=== PATIENT | female | born 1935 | race Caucasian/White ===

== ENCOUNTER → 2016-04-22 | Outpatient (CLI) | payer MEDICARE | LOC: RAD 11:20 | PROVIDERS: ATTEND Internal Medicine Medical Oncology | DX: C50.912 Malignant neoplasm of unspecified site of left female breast (principal); Z85.3 Personal history of malignant neoplasm of breast | CPT/HCPCS: 78815; A9552 ==

== ENCOUNTER 2016-08-16 12:20 | Observation (INO) | payer MEDICARE ==
--- NOTE | 2016-08-16 12:36 | ER Document Report ---
ED Medical Screen (RME) - General Chief Complaint: Shortness Of Breath Stated Complaint: SHORTNESS OF BREATH Time Seen by Provider: 08/16/16 12:28 Notes: 81-year-old female who presents today with some feeling of some "shortness of breath and "starting yesterday. Patient denies any real chest pain or pressure. She denies any leg swelling. She has had some nasal congestion without nausea, vomiting, fevers, or productive cough. Patient was sent here by the primary care physician for further evaluation. The daughter states that the patient has had a 40 pound weight loss over the last few months. TRAVEL OUTSIDE OF THE [place] IN LAST 30 DAYS: No - Related Data Allergies/Adverse Reactions: No Known Allergies Allergy (Verified 08/16/16 12:25) Past Medical History Renal/ Medical History: Denies: Hx Peritoneal Dialysis
--- NOTE | 2016-08-16 12:57 | ER Document Report ---
ED Respiratory Problem - General Chief Complaint: Shortness Of Breath Stated Complaint: SHORTNESS OF BREATH Time Seen by Provider: 08/16/16 12:28 Mode of Arrival: Ambulatory Information source: Patient, Relative - daughter Notes: 81 yo non smoker non drinker, female c/o shortness of breath and feeling very sluggish since yesterday. Daughter noticed the gasping for air this morning while standing at the counter. Leaned over because she was so tired. PCP: Dr. trimble. pmh: Afib, hyperlipidemia, depression, hypertension, low bone density. No hx of MA. Denies chest pain but has funny feeling retrosternal midline last night and this morning after eating, goes away when she relaxes or 30 minutes after eating. Stress test years ago, negative. TRAVEL OUTSIDE OF THE [place] IN LAST 30 DAYS: No - Related Data Allergies/Adverse Reactions: No Known Allergies Allergy (Verified 08/16/16 12:25) Home Medications: Current Home Medications Alendronate Sodium [Fosamax] 70 mg PO FR 08/16/16 [History] Atenolol [Tenormin 50 mg Tablet] 50 mg PO NOON 08/16/16 [History] Benazepril HCl [Lotensin 20 mg Tablet] 20 mg PO DAILY 08/16/16 [History] Calcium Carbonate/Vitamin D3 [Calcium 500 + Vit D Caplet] 1 tab PO DAILY [History] Fluoxetine HCl [Prozac] 10 mg PO DAILY 08/16/16 [History] Pravastatin Sodium [Pravachol] 40 mg PO QHS 08/16/16 [History] Warfarin Sodium [Coumadin 2 mg Tablet] 2 mg PO MOFR 08/16/16 [History] Warfarin Sodium [Coumadin 3 mg Tablet] 3 mg PO SUTUWETHSA 08/16/16 [History] Past Medical History - General Information source: Patient - Social History Smoking Status: Never Smoker Frequency of alcohol use: None Drug Abuse: None Lives with: Family Family History: Reviewed & Not Pertinent Patient has suicidal ideation: No Patient has homicidal ideation: No - Past Medical History Cardiac Medical History: Reports: Hx Atrial Fibrillation, Hx Hypertension Other: hyperlipedemia Renal/ Medical History: Denies: Hx Peritoneal Dialysis Surgical Hx: Negative Review of Systems - Review of Systems Constitutional: See HPI EENT: No symptoms reported Cardiovascular: No symptoms reported Respiratory: See HPI Gastrointestinal: No symptoms reported Genitourinary: No symptoms reported Female Genitourinary: No symptoms reported Musculoskeletal: No symptoms reported Skin: No symptoms reported Hematologic/Lymphatic: No symptoms reported Neurological/Psychological: See HPI Physical Exam - Vital signs Vitals: Temp Pulse Resp BP Pulse Ox 97.6 F 68 20 99/66 L 97 08/16/16 12:34 08/16/16 12:34 08/16/16 12:34 08/16/16 12:34 08/16/16 12:34 Interpretation: Normal - General General appearance: Appears well, Alert In distress: None - HEENT Head: Normocephalic, Atraumatic Eyes: Normal Conjunctiva: Normal Pupils: PERRL Tympanic membrane: Normal Nasal: Normal Mucous membranes: Dry Neck: Supple. No: Lymphadenopathy - Respiratory Respiratory status: No respiratory distress Chest status: Nontender Breath sounds: Normal Chest palpation: Normal - Cardiovascular Rhythm: Regular Heart sounds: Normal auscultation Murmur: No - Abdominal Inspection: Normal Distension: No distension Bowel sounds: Normal Tenderness: Nontender. No: Tender Organomegaly: No organomegaly - Back Back: Normal, Nontender. No: CVA tenderness - Extremities General upper extremity: Normal inspection, Nontender, Normal color, Normal ROM , Normal temperature General lower extremity: Normal inspection, Nontender, Normal color, Normal ROM , Normal temperature, Normal weight bearing. No: Robbin's sign - Neurological Neuro grossly intact: Yes Cognition: Normal Orientation: AAOx4 [place] Coma Scale Eye Opening: Spontaneous Misha Coma Scale Verbal: Oriented Misha Coma Scale Motor: Obeys Commands Misha Coma Scale Total: 15 Speech: Normal Motor strength normal: LUE, RUE, LLE, RLE Sensory: Normal - Psychological Associated symptoms: Normal affect, Normal mood - Skin Skin Temperature: Warm Skin Moisture: Dry Skin Color: Normal Skin irregularity: negative: Rash Course - Re-evaluation Re-evalutation: 08/16/16 15:15 Dr. Hamilton has suggested admission I called Dr. Dozier and he wanted me to order a CTA and admit telemetry observation. I will discuss this with the patient. - Vital Signs Vital signs: Temp Pulse Resp BP Pulse Ox 97.6 F 68 20 152/91 H 99 08/16/16 12:34 08/16/16 12:34 08/16/16 16:01 08/16/16 16:01 08/16/16 16:01 - Laboratory Result Diagrams: 08/16/16 12:45 08/16/16 12:45 Laboratory results interpreted by me: 08/16/16 08/16/16 08/16/16 12:45 12:45 12:45 Hgb 11.9 L RDW 14.5 H Seg Neutrophils % 81.2 H Lymphocytes % 10.9 L PT 17.0 H Potassium 5.6 H BUN 39 H Est GFR ( Amer) 54 L Est GFR (Non-Af Amer) 45 L Calcium 10.6 H Ur Leukocyte Esterase Urine Ascorbic Acid 08/16/16 14:15 Hgb RDW Seg Neutrophils % Lymphocytes % PT Potassium BUN Est GFR ( Amer) Est GFR (Non-Af Amer) Calcium Ur Leukocyte Esterase LARGE H Urine Ascorbic Acid 40 H Discharge - Discharge Clinical Impression: shortness of breath, weight loss, HX: breast cancer, Urine WBC increased Chest pain Qualifiers: Chest pain type: unspecified Qualified Code(s): R07.9 - Chest pain, unspecified Fatigue Qualifiers: Fatigue type: unspecified Qualified Code(s): R53.83 - Other fatigue Condition: Stable Disposition: ADMITTED OBSERVATION Admitting Provider: Hospitalist Unit Admitted: Telemetry
[2016-08-16 13:09] LABS: ABSOLUTE LYMPHOCYTES (AUTO) 0.7 10^3/uL (0.5-4.7); ABSOLUTE MONOCYTES (AUTO) 0.5 10^3/uL (0.1-1.4); ABSOLUTE NEUT (AUTO) 5.3 10^3/uL (1.7-8.2); BASOPHILS % (AUTO) 0.2 % (0-2); EOSINOPHILS % (AUTO) 0.5 % (0-6); HEMATOCRIT 36.6 % (36.0-47.0); HEMOGLOBIN 11.9 g/dL (12.0-15.5); HGB HCT DIFFERENCE -0.9; LYMPHOCYTES % (AUTO) 10.9 % (13-45); MEAN CORPUSCULAR HEMOGLOBIN 30.2 pg (27.0-33.4); MEAN CORPUSCULAR HGB CONC 32.5 g/dL (32.0-36.0); MEAN CORPUSCULAR VOLUME 93 fl (80-97); MONOCYTES % (AUTO) 7.2 % (3-13); RED BLOOD COUNT 3.94 10^6/uL (3.72-5.28); RED CELL DISTRIBUTION WIDTH 14.5 % (11.5-14.0); SEGMENTED NEUTROPHILS % (AUTO) 81.2 % (42-78); WHITE BLOOD COUNT 6.5 10^3/uL (4.0-10.5)
[2016-08-16 13:19] LABS: ANION GAP 10 (5-19); BLOOD UREA NITROGEN 39 mg/dL (7-20); CALCIUM 10.6 mg/dL (8.4-10.2); CARBON DIOXIDE 25 mmol/L (22-30); CHLORIDE 107 mmol/L (98-107); CREATININE RESULT 1.17 mg/dL (0.52-1.25); GLUCOSE 93 mg/dL (75-110); POTASSIUM 5.6 mmol/L (3.6-5.0); SODIUM 141.5 mmol/L (137-145)
[2016-08-16] MEDS ORDERED: NORMAL SALINE 1000 ML 1,000 ML IV ONE (13:19)
[2016-08-16] MEDS ORDERED: NORMAL SALINE 1000 ML 500 ML IV ONE (13:20)
[2016-08-16 14:17] LABS: ALANINE AMINOTRANSFERASE 12 U/L (9-52); ALBUMIN 4.3 g/dL (3.5-5.0); ALKALINE PHOSPHATASE 48 U/L (38-126); ASPARTATE AMINO TRANSFERASE 23 U/L (14-36); BILIRUBIN,DIRECT 0.4 mg/dL (0.0-0.4); BILIRUBIN,TOTAL 0.9 mg/dL (0.2-1.3); TOTAL PROTEIN 7.2 g/dL (6.3-8.2)
[2016-08-16 14:39] LABS: APPEARANCE,URINE CLOUDY; BILIRUBIN,URINE NEGATIVE (NEGATIVE); GLUCOSE, URINE NEGATIVE (NEGATIVE); KETONES,URINE NEGATIVE (NEGATIVE); LEUKOCYTE ESTERASE,URINE LARGE (NEGATIVE); NITRITE,URINE NEGATIVE (NEGATIVE); PROTEIN,URINE NEGATIVE (NEGATIVE); URINE SPECIFIC GRAVITY 1.011; UROBILINOGEN,URINE NEGATIVE mg/dL (<2.0)
[2016-08-16] MEDS ORDERED: ONDANSETRON HCL INJ/PF 4 MG/2 ML SDV IV PRN (16:38)
[2016-08-16] MEDS ORDERED: 1/2 NORMAL SALINE 1,000 ML IV PRN (16:38)
[2016-08-16] MEDS ORDERED: ACETAMINOPHEN 325 MG TABLET PO PRN (16:38)
--- NOTE | 2016-08-16 17:19 | PDOC H&P ---
History of Present Illness Admission Date/PCP: 08/16/16 15:29 CHAVO NAYLOR DO Patient complains of: Chest pain History of Present Illness: ARELIS LUNA is a 81 year old female with past medical history of atrial fibrillation, hypertension, depression/anxiety that is accompanied to the emergency department by family for 2 episodes over the past 2 days of chest pain with associated shortness of breath and diaphoresis. These episodes were not associated with exertion. There is nothing in particular that would aggravate or relieve this discomfort. Patient incidentally states she has been under a lot of "stress" lately helping care for her has dementia. She resides with her son and [id number] also help care for both of her and her . Patient was recently started on fluoxetine 10 mg daily 2 weeks ago for anxiety issues. Patient has also had approximate 40 pounds of weight loss over the past 4 months. This coincides with the same timeframe in which she moved in with her son and [id number]. Her dietary habits have changed significantly since moving in with family members. Medications listed below have not been verified at the time of this documentation. Past Medical History Cardiac Medical History: Reports: Atrial Fibrillation, Hypertension Pulmonary Medical History: Reports: Bronchitis - breast Malignancy Medical History: Reports: Breast Cancer - Remote history followed by Dr. Nina Psychiatric Medical History: Reports: Depression Past Surgical History Past Surgical History: Reports: Mastectomy - L side Social History Information Source: Patient, Relative Lives with: Family Smoking Status: Former Smoker Frequency of Alcohol Use: None Hx Recreational Drug Use: No Hx Prescription Drug Abuse: No - Advance Directive Resuscitation Status: Full Code Family History Family History: Hypertension Parental Family History Reviewed: Yes Children Family History Reviewed: Yes Sibling(s) Family History Reviewed.: Yes Medication/Allergy Allergies/Adverse Reactions: No Known Allergies Allergy (Verified 08/16/16 12:25) Review of Systems Constitutional: PRESENT: fatigue, weakness - Generalized. ABSENT: chills, fever (s), headache(s), weight gain, weight loss Eyes: ABSENT: visual disturbances Ears: ABSENT: hearing changes Cardiovascular: ABSENT: chest pain, dyspnea on exertion, edema, orthropnea, palpitations Respiratory: ABSENT: cough, hemoptysis Gastrointestinal: ABSENT: abdominal pain, constipation, diarrhea, hematemesis, hematochezia, nausea, vomiting Genitourinary: ABSENT: dysuria, hematuria Musculoskeletal: ABSENT: joint swelling Integumentary: ABSENT: rash, wounds Neurological: ABSENT: abnormal gait, abnormal speech, confusion, dizziness, focal weakness, syncope Psychiatric: ABSENT: anxiety, depression, homidical ideation, suicidal ideation Endocrine: ABSENT: cold intolerance, heat intolerance, polydipsia, polyuria Hematologic/Lymphatic: ABSENT: easy bleeding, easy bruising Physical Exam Vital Signs: Temp Pulse Resp BP Pulse Ox 97.6 F 68 20 99/66 L 97 08/16/16 12:34 08/16/16 12:34 08/16/16 12:34 08/16/16 12:34 08/16/16 12:34 PHYSICAL EXAM: GENERAL: Appears well, no acute distress HEENT: Normocephalic, no scleral icterus, conjunctiva clear, EOEM intact, PERRLA , moist mucous membranes NECK: trachea midline, no thyromegally RESPIRATORY: Clear to auscultation, no wheezes/rhonchi CARDIAC: Regular rate and rhythm, no murmur/keli/rub ABDOMEN: Soft, no distension, no tenderness, no guarding, normal bowel sounds, negative Shoemaker sign RECTAL: deferred : deferred EXTREMITIES: No edema, cyanosis, clubbing MUSCULOSKELETAL: No joint swelling or deformity VASCULAR: normal peripheral pulses NEUROLOGIC: Alert, oriented to person/place/time, normal speech, cranial nerves grossly intact, 5/5 strength in all extremities, tactile sensation intact in all extremities SKIN: No rash, no wounds, no worrisome skin lesions PSYCHIATRIC: Normal mood, normal affect Results Laboratory Results: Labs- All tests 24 hr 08/16/16 08/16/16 08/16/16 12:45 12:45 12:45 WBC 6.5 RBC 3.94 Hgb 11.9 L Hct 36.6 MCV 93 MCH 30.2 MCHC 32.5 RDW 14.5 H Plt Count 238 Seg Neutrophils % 81.2 H Lymphocytes % 10.9 L Monocytes % 7.2 Eosinophils % 0.5 Basophils % 0.2 Absolute Neutrophils 5.3 Absolute Lymphocytes 0.7 Absolute Monocytes 0.5 Absolute Eosinophils 0.0 Absolute Basophils 0.0 PT INR Sodium 141.5 Potassium 5.6 H Chloride 107 Carbon Dioxide 25 Anion Gap 10 BUN 39 H Creatinine 1.17 Est GFR ( Amer) 54 L Est GFR (Non-Af Amer) 45 L Glucose 93 Calcium 10.6 H Total Bilirubin Direct Bilirubin Indirect Bilirubin Neonat Total Bilirubin AST ALT Alkaline Phosphatase Troponin I < 0.012 Total Protein Albumin Urine Color Urine Appearance Urine pH Ur Specific Lynn Urine Protein Urine Glucose (UA) Urine Ketones Urine Blood Urine Nitrite Urine Bilirubin Urine Urobilinogen Ur Leukocyte Esterase Urine WBC (Auto) Urine RBC (Auto) Urine Bacteria (Auto) Urine WBC Clumps Squamous Epi Cells Auto Urine Mucus (Auto) Urine Ascorbic Acid 08/16/16 08/16/16 08/16/16 12:45 12:45 14:15 WBC RBC Hgb Hct MCV MCH MCHC RDW Plt Count Seg Neutrophils % Lymphocytes % Monocytes % Eosinophils % Basophils % Absolute Neutrophils Absolute Lymphocytes Absolute Monocytes Absolute Eosinophils Absolute Basophils PT 17.0 H INR 1.33 Sodium Potassium Chloride Carbon Dioxide Anion Gap BUN Creatinine Est GFR ( Amer) Est GFR (Non-Af Amer) Glucose Calcium Total Bilirubin 0.9 Direct Bilirubin 0.4 Indirect Bilirubin Not Reportable Neonat Total Bilirubin Not Reportable AST 23 ALT 12 Alkaline Phosphatase 48 Troponin I Total Protein 7.2 Albumin 4.3 Urine Color YELLOW Urine Appearance CLOUDY Urine pH 7.0 Ur Specific Lynn 1.011 Urine Protein NEGATIVE Urine Glucose (UA) NEGATIVE Urine Ketones NEGATIVE Urine Blood NEGATIVE Urine Nitrite NEGATIVE Urine Bilirubin NEGATIVE Urine Urobilinogen NEGATIVE Ur Leukocyte Esterase LARGE H Urine WBC (Auto) 176 Urine RBC (Auto) 5 Urine Bacteria (Auto) TRACE Urine WBC Clumps MOD Squamous Epi Cells Auto 2 Urine Mucus (Auto) RARE Urine Ascorbic Acid 40 H Impressions: Chest X-Ray 08/16/16 12:35 IMPRESSION: No acute findings Chest/Abdomen CTA 08/16/16 15:14 IMPRESSION: No CT angio evidence of acute pulmonary emboli or thoracic aortic dissection No acute infiltrates or pleural effusions Calcified stones in the gallbladder 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 Serial cardiac enzymes. Consult cardiology for recommendations given patient's constitutional symptoms of dyspnea and diaphoresis. CTA of chest negative for pulmonary embolism/dissection. Gallstones noted. 3 cm splenic artery aneurysm. (2) Choledocholithiasis Is this a current diagnosis for this admission?: YesPlan: This could be considered a source of patient's symptoms if cardiac workup is negative. (3) Urinary tract infection Is this a current diagnosis for this admission?: YesPlan: This may be accounting for patient's fatigue, polyuria. Doxycycline 100 mg twice daily. (4) Hyperkalemia Is this a current diagnosis for this admission?: YesPlan: Hold outpatient PAN inhibitor. Gentle IV fluids. Repeat potassium level in the morning. (5) Weight loss Is this a current diagnosis for this admission?: YesPlan: Possibly secondary to recent social changes in that she moved in with her son and [id number] in her dietary habits have changed. I would like to check thyroid function studies and cortisol level given other constitutional symptoms of fatigue. (6) Atrial fibrillation Is this a current diagnosis for this admission?: YesPlan: Increase Coumadin to 3 mg daily secondary to subtherapeutic INR. Patient normally takes atenolol as well and we will resume this once we verify the dose. (7) Hypertension Is this a current diagnosis for this admission?: YesPlan: Verify home medications. Blood pressures running on the low side I may hold these for now until blood pressure improves. (8) Anxiety Is this a current diagnosis for this admission?: YesPlan: Verify home dose of fluoxetine and resume. Check thyroid function studies to exclude hyperthyroid state given recent weight loss. (9) HX: breast cancer Is this a current diagnosis for this admission?: YesPlan: Patient has remote history of breast cancer. She is followed by Dr. Nina as an outpatient. - Time Time Spent: Greater than 70 Minutes Anticipated discharge: Home Within: within 48 hours
[2016-08-16 18:58] LABS: TROPONIN I < 0.012 ng/mL
[2016-08-16 19:41] LABS: FREE T3 3.08 pg/mL (2.77-5.27)
[2016-08-16 19:55] LABS: THYROID STIMULATING HORMONE 3.42 uIU/mL (0.47-4.68)
[2016-08-16] MEDS ORDERED: AMINOPHYLLINE INJ/PF 250 MG/10 ML SDV IV ONE (21:53)
[2016-08-16] MEDS ORDERED: REGADENOSON INJ 0.4 MG/5 ML DISP.SYRIN IV ONE (21:53)
--- NOTE | 2016-08-16 22:12 | EKG REPORT ---
SEVERITY:- ABNORMAL ECG - ATRIAL FIBRILLATION, V-RATE 52-84 : Confirmed by: Brittany Barrera MD 16-Aug-2016 22:12:37
[2016-08-16] MEDS: WARFARIN SODIUM 3 MG TABLET PO SCH (22:34)
[2016-08-16] MEDS: DOXYCYCLINE HYCLATE 100 MG TABLET PO SCH (22:34)
[2016-08-16 23:33] LABS: CREATINE KINASE MB 0.95 ng/mL (<4.55)
[2016-08-16 23:37] LABS: TROPONIN I < 0.012 ng/mL
[2016-08-17] MEDS: ENOXAPARIN SODIUM INJ 30 MG/0.3 ML DISP.SYRIN SUBCUT SCH (08:00)
[2016-08-17] MEDS: DOXYCYCLINE HYCLATE 100 MG TABLET PO SCH ×2 (10:00→22:09)
[2016-08-17] MEDS ORDERED: HYDRALAZINE HCL INJ/PF 20 MG/1 ML SDV IV PRN (18:52)
[2016-08-17] MEDS: WARFARIN SODIUM 3 MG TABLET PO SCH (22:09)
--- NOTE | 2016-08-17 22:49 | PDOC CONSULTATION ---
Consultation Consult Date: 08/16/16 Attending physician:: TERI PULLIAM MD Consult reason:: Chest pain History of Present Illness Admission Date/PCP: 08/16/16 16:38 CHAVO NAYLOR DO Patient complains of: Chest pain History of Present Illness: ARELIS LUNA is a 81 year old female with past medical history of atrial fibrillation, hypertension, depression/anxiety that is accompanied to the emergency department by family for 2 episodes over the past 2 days of chest pain with associated shortness of breath and diaphoresis. These episodes were not associated with exertion. There is nothing in particular that would aggravate or relieve this discomfort. There is no significant radiation. There is no associated nausea vomiting or diaphoresis. When I saw the patient, she was noted to be chest pain-free. Severity of symptoms was moderate as per patient. Patient incidentally states she has been under a lot of "stress" lately helping care for her has dementia. She resides with her son and [id number] also help care for both of her and her . Patient was recently started on fluoxetine 10 mg daily 2 weeks ago for anxiety issues. Patient has also had approximate 40 pounds of weight loss over the past 4 months. This coincides with the same timeframe in which she moved in with her son and [id number]. Her dietary habits have changed significantly since moving in with family members. Above history was confirmed, supplemented. I agree with above history which was also supplemented. I talked with patient's daughter in law in the room. Past Medical History Cardiac Medical History: Reports: Atrial Fibrillation, Hypertension Pulmonary Medical History: Reports: Bronchitis - breast Malignancy Medical History: Reports: Breast Cancer - Remote history followed by Dr. Nina Psychiatric Medical History: Reports: Depression Past Surgical History Past Surgical History: Reports: Mastectomy - L side Social History Information Source: Patient Lives with: Family Smoking Status: Never Smoker Frequency of Alcohol Use: None Hx Recreational Drug Use: No Drugs: None Hx Prescription Drug Abuse: No - Advance Directive Resuscitation Status: Full Code Family History Family History: Reviewed & Not Pertinent Parental Family History Reviewed: Yes Children Family History Reviewed: Yes Sibling(s) Family History Reviewed.: Yes Medication/Allergy Home Medications: Alendronate Sodium [Fosamax] 70 mg PO FR 08/16/16 Atenolol [Tenormin 50 mg Tablet] 50 mg PO NOON 08/16/16 Calcium Carbonate/Vitamin D3 [Calcium 500 + Vit D Caplet] 1 tab PO DAILY Fluoxetine HCl [Prozac] 10 mg PO DAILY 08/16/16 Pravastatin Sodium [Pravachol] 40 mg PO QHS 08/16/16 Cefpodoxime Proxetil [Vantin 100 mg Tablet] 1 tab PO Q12 #20 tab 08/18/16 Warfarin Sodium [Coumadin 3 mg Tablet] 3 mg PO QHS tablet 08/18/16 Allergies/Adverse Reactions: No Known Allergies Allergy (Verified 08/16/16 12:25) Review of Systems Review of Systems: Please see history of present illness and past medical history as wall. Constitutional: No fever or chills reported. Patient has noted fatigue, tiredness and some weight loss Head : No recent chronic headaches, recent head injury. Eyes: No recent eye pain, diplopia, redness, discharge, acute visual changes. Ears: No recent chronic ear pain, acute hearing loss, ear discharge. Oral cavity: No recent ulcerations, bleeding, oral cavity discomfort. Neck: No recent acute neck pain reported. Hematologic: No recent easy bruising or bleeding or hematologic malignancy reported. Lymphatic: No recent lymphatic malignancy, chronic lymphadenopathy reported yet Cardiovascular system review: See history of present illness. Respiratory system review: No recent chronic cough, hemoptysis, blood clots in the lungs reported. Mild Shortness of breath on exertion Gastrointestinal system review: Negative for any recent acute or chronic abdominal pain, hematemesis, melena, recent change in bowel habits. Genitourinary system review: No recent acute or chronic hematuria, flank pain, UTI etc. reported. Skin system review: Negative for any recent abnormal bruising, no rash, no pruritus reported. Neurologic: No prior history of strokes, mini strokes, seizure disorder. Psychologic: No history of major psychosis or major depression reported. Musculoskeletal: Minor aches and pains reported. No acute joint swelling reported. Endocrine: No recent polyuria, polydipsia, recent heat or cold intolerance. Physical Exam Vital Signs: Temp Pulse Resp BP Pulse Ox 97.5 F 68 17 158/86 H 97 08/16/16 17:39 08/16/16 17:39 08/16/16 17:39 08/16/16 17:39 08/16/16 17:39 Exam: GENERAL: well-nourished and in no acute distress. Alert and oriented x3 HEAD: Atraumatic, normocephalic. EYES: Pupils equal round and reactive to light, extraocular movements intact, sclera anicteric, conjunctiva are normal. ENT: TMs normal, nares patent, oropharynx clear without exudates. Moist mucous membranes. No oral ulcerations or bleeding gums noted NECK: supple without lymphadenopathy. Trachea is central. No cervical or axillary lymphadenopathy noted. Carotids are 2+, JVD WNL LUNGS: Respiration seems nonlabored, no significant accessory muscle action noted. Breath sounds clear to auscultation bilaterally and equal noted. No wheezes rales or rhonchi noted. No significant dullness noted on percussion. CHEST: Palpation of the chest wall shows no significant chest wall tenderness. No other significant abnormalities noted. Left mastectomy noted. HEART: [place] DRY PLASTERER, No PSH, 1/6 BREANA aortic area, 1/6 [place] systolic murmur mitral area, no rubs, no gallops. ABDOMEN: Soft, no significant tenderness appreciated, normoactive bowel sounds. No guarding, no rebound. No rigidity noted . No masses appreciated. EXTREMITIES: Pedal pulses are 1-2+, no calf tenderness noted. No clubbing or cyanosis.trace to 1+ pedal edema noted NEUROLOGICAL: Focused neurological exam showed no significant neurologic deficit. Normal speech, no focal weakness appreciated. PSYCH: Normal mood, normal affect. Judgment and insight within normal limits. SKIN: No significant ecchymosis, rash, ulcerations or signs of pruritus noted. MUSCULOSKELETAL EXAM: No significant joint swelling noted. Results Laboratory Results: 08/16/16 08/16/16 18:30 18:30 Vitamin B12 230.0 L TSH 3.42 Free T4 0.91 Free T3 pg/mL 3.08 08/16/16 08/16/16 17:14 18:30 Creatine Kinase 43 CK-MB (CK-2) 0.90 Troponin I < 0.012 EKG Comments: Atrial fibrillation, no acute ST-T wave changes noted. 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 Assessment & Plan - Diagnosis (1) Chest pain Qualifiers: Chest pain type: unspecified Qualified Code(s): R07.9 - Chest pain, unspecified Is this a current diagnosis for this admission?: Yes (2) Dyspnea Qualifiers: Dyspnea type: dyspnea on exertion Qualified Code(s): R06.09 - Other forms of dyspnea Is this a current diagnosis for this admission?: Yes (3) Atrial fibrillation Qualifiers: Atrial fibrillation type: chronic Qualified Code(s): I48.2 - Chronic atrial fibrillation Is this a current diagnosis for this admission?: Yes (4) Hypertension Qualifiers: Hypertension type: essential hypertension Qualified Code(s): I10 - Essential (primary) hypertension Is this a current diagnosis for this admission?: Yes - Notes Notes: Chest pain: There is at least intermediate probability that the patient's chest discomfort could be from underlying CAD. To be evaluated further with the nuclear stress test. Nuclear stress test procedure was explained to the patient in detail. Risks benefits were discussed and informed consent was obtained. Alternatives were discussed. Patient informed that based on risk factors, physical exam, lab data findings and symptoms there is at least intermediate probability of underlying CAD. Nuclear stress test procedure was therefore scheduled. Dyspnea: Possibly related to systolic/diastolic dysfunction/valvular heart disease. A 2D echocardiogram would be obtained to evaluate this further. This was ordered. Hypertension: Under satisfactory control. Atrial fibrillation: Chronic. Continue chronic anticoagulation if there are no contraindications. Based on Brian VASC score, this was recommended - Time Time Spent: 30 to 50 Minutes - CODE STATUS was discussed, patient remains full code. Surrogate decision-maker patient's . Multiple medical problems were addressed. More than 50% of the time spent coordinating care, discussing management plans with involved caregivers. Management plans discussed with involved personnels. Medical decision making was of moderate to high complexity , patient's has multiple severe comorbidities. Medications reviewed and adjusted accordingly: Yes
--- NOTE | 2016-08-17 22:55 | PDOC PROGRESS REPORT ---
Subjective Progress Note for:: 08/17/16 Subjective:: Patient seems to be doing better with gradual improvement. Pt is denying any chest arm or neck discomfort. Patient denying any PND, orthopnea. Patient denied any sustained palpitations, dizziness, syncope, near syncope. Patient denying any fever chills. Patient denying any other significant discomfort. Patient is maintaining chronic atrial fibrillation with controlled heart rate response. CT results reviewed show splenic artery aneurysm. 2D echo results reviewed showed low normal LVEF Review of systems: Rest review of systems negative. Medications: Medications have been reviewed. Physical Exam Vital Signs: Temp Pulse Resp BP Pulse Ox 97.8 F 86 17 137/64 H 98 08/17/16 19:38 08/17/16 19:38 08/17/16 19:38 08/17/16 19:38 08/17/16 19:38 Intake & Output 08/16/16 08/17/16 08/18/16 06:59 06:59 06:59 Intake Total 240 Output Total 650 Balance -410 Weight 53.5 kg Results Laboratory Results: 08/16/16 08/16/16 08/16/16 17:14 18:30 23:00 Creatine Kinase 43 40 CK-MB (CK-2) 0.90 Troponin I < 0.012 08/16/16 23:00 Creatine Kinase CK-MB (CK-2) 0.95 Troponin I < 0.012 Impressions: Chest X-Ray 08/16/16 12:35 IMPRESSION: No acute findings Chest/Abdomen CTA 08/16/16 15:14 IMPRESSION: No CT angio evidence of acute pulmonary emboli or thoracic aortic dissection No acute infiltrates or pleural effusions Calcified stones in the gallbladder Unruptured enhancing 3 cm splenic artery aneurysm Assessment & Plan - Diagnosis (1) Dyspnea Qualifiers: Dyspnea type: dyspnea on exertion Qualified Code(s): R06.09 - Other forms of dyspnea Is this a current diagnosis for this admission?: Yes (2) Atrial fibrillation Qualifiers: Atrial fibrillation type: chronic Qualified Code(s): I48.2 - Chronic atrial fibrillation Is this a current diagnosis for this admission?: Yes (3) Chest pain Qualifiers: Chest pain type: unspecified Qualified Code(s): R07.9 - Chest pain, unspecified Is this a current diagnosis for this admission?: Yes (4) Hypertension Qualifiers: Hypertension type: essential hypertension Qualified Code(s): I10 - Essential (primary) hypertension Is this a current diagnosis for this admission?: Yes (5) Splenic artery aneurysm Is this a current diagnosis for this admission?: Yes - Notes Notes: Chest pain: There is at least intermediate probability that the patient's chest discomfort could be from underlying CAD. To be evaluated further with the nuclear stress test. Dyspnea: Possibly related to systolic/diastolic dysfunction/valvular heart disease. A 2D echocardiogram would be obtained to evaluate this further. Hypertension: Under satisfactory control. Atrial fibrillation: Chronic. Continue chronic anticoagulation if there are no contraindications. - Time Time with patient: Greater than 35 minutes Medications reviewed and adjusted accordingly: Yes
[2016-08-18 06:26] LABS: HEMATOCRIT 34.5 % (36.0-47.0); HEMOGLOBIN 11.4 g/dL (12.0-15.5); HGB HCT DIFFERENCE -0.3; MEAN CORPUSCULAR HEMOGLOBIN 30.4 pg (27.0-33.4); MEAN CORPUSCULAR HGB CONC 32.9 g/dL (32.0-36.0); MEAN CORPUSCULAR VOLUME 92 fl (80-97); RED BLOOD COUNT 3.74 10^6/uL (3.72-5.28); RED CELL DISTRIBUTION WIDTH 14.6 % (11.5-14.0); WHITE BLOOD COUNT 5.4 10^3/uL (4.0-10.5)
[2016-08-18 06:29] LABS: PROTHROMBIN TIME 16.8 SEC (11.4-15.4)
[2016-08-18 06:40] LABS: ANION GAP 10 (5-19); BLOOD UREA NITROGEN 24 mg/dL (7-20); CALCIUM 10.2 mg/dL (8.4-10.2); CARBON DIOXIDE 22 mmol/L (22-30); CHLORIDE 110 mmol/L (98-107); CREATININE RESULT 0.89 mg/dL (0.52-1.25); GLUCOSE 82 mg/dL (75-110); POTASSIUM 4.6 mmol/L (3.6-5.0); SODIUM 142.3 mmol/L (137-145)
[2016-08-18 07:57] LABS: HEMATOCRIT 33.9 % (36.0-47.0); HEMOGLOBIN 11.3 g/dL (12.0-15.5); MEAN CORPUSCULAR HEMOGLOBIN 30.1 pg (27.0-33.4); MEAN CORPUSCULAR HGB CONC 33.3 g/dL (32.0-36.0); MEAN CORPUSCULAR VOLUME 90 fl (80-97); RED BLOOD COUNT 3.75 10^6/uL (3.72-5.28); RED CELL DISTRIBUTION WIDTH 14.5 % (11.5-14.0); WHITE BLOOD COUNT 4.8 10^3/uL (4.0-10.5)
--- NOTE | 2016-08-18 08:35 | PROGRESS NOTE E ---
Progress Note NAME: ARELIS LUNA : 1935 AGE: 81Y DATE: 08/17/2016 ROOM: 428 TIME SPENT MANAGING PATIENT: Twenty-five minutes. SUBJECTIVE: Patient has no further episodes of chest pain or shortness of breath. She denies fevers, chills, headache, focal weakness, numbness, chest pain or abdominal pain, nausea or vomiting. OBJECTIVE: VITAL SIGNS: Temperature 97.5, blood pressure 152/78, pulse 66, respirations 17, O2 saturation is 97% on room air. GENERAL: She is alert, sitting at the edge of the bed eating breakfast. In no acute distress. HEENT: Sclerae nonicteric. Oropharynx shows moist mucous membranes. NECK: Has no JVD; midline trachea. RESPIRATORY: Clear to auscultation. No wheeze or rhonchi. CARDIAC: Regular rate and rhythm with no murmurs, gallops, or rubs. ABDOMEN: Soft, nontender. EXTREMITIES: No edema, cyanosis, clubbing. LABORATORY DATA: White blood count 4.8, hemoglobin 11.3, platelets 198. Cortisol level is normal at 10.9. Cardiac enzymes have been negative. INR of 1.32, potassium 5.4. ASSESSMENT AND PLAN: 1. CHEST PAIN. PATIENT IS RULED OUT FOR ACUTE WI. Cardiology has been consulted. Will order echocardiogram and stress test in the morning. Patient also noted to have cholelithiasis. Of course, symptomatic cholelithiasis could reproduce these type symptoms if cardiac workup is negative. 2. CHOLELITHIASIS. Consider outpatient surgical recommendations. 3. URINARY TRACT INFECTION. 4. WEIGHT LOSS. 5. HYPERKALEMIA. PAN inhibitor was discontinued on admission. 6. ATRIAL FIBRILLATION. Patient's Coumadin was increased to 3 mg daily secondary to subtherapeutic INR. She remains on Lovenox until her INR is therapeutic. 7. HYPERTENSION. IV hydralazine p.r.n. 8. REMOTE HISTORY OF BREAST CANCER. Followed by Dr. Nina. DICTATING PHYSICIAN: TERI PULLIAM M.D. [id number] PHY#: [id number] ID: [id number] JOB#: [id number] ACCT: [id number] cc: >
[2016-08-18] MEDS: ENOXAPARIN SODIUM INJ 30 MG/0.3 ML DISP.SYRIN SUBCUT SCH (08:37)
[2016-08-18] MEDS: DOXYCYCLINE HYCLATE 100 MG TABLET PO SCH (09:13)
[2016-08-18 11:56] LABS: PROTHROMBIN TIME 16.9 SEC (11.4-15.4)
--- NOTE | 2016-08-18 13:39 | Physician Advisory Note ---
Physician Advisor ProgressNote .: Pursuant to the plan for [facility], I have reviewed the medical record for this patient. Physician Advisor Statement: Possible documentation opportunities if attending agrees: 1. ? - "hyperkalemia suspected due to PAN-I, appropriately prescribed & taken correctly" 2. "persistent Afib" [or paroxysmal? ... ] 3. ? - "Nutritional B12 deficiency anemia" As always, if concerned about any unstable VS or abnormal labs, please comment on them & note what doing about them, & please document each day the potential clinical problems you are concerned could occur if pt not kept in hospital for tx at this time. Thanks for your help with documentation accuracy/specificity improvement! Sola Rojas MD [facility] Physician Advisor, Fellow of Hospital Medicine
--- NOTE | 2016-08-18 16:59 | DRAGON STRESS TEST REPORT ---
INTRAVENOUS LEXISCAN CARDIOLITE STRESS TEST USING SINGLE PHOTON EMMISION COMPUTERIZED TOMOGRAPHIC. DATE OF PROCEDURE: August 18, 2016 INDICATION : Chest pain CARDIAC RISK FACTORS: Hypertension, atrial fibrillation RESTING EKG: Atrial fibrillation with controlled ventricular response. Possible LVH. STRESS EKG: No significant changes noted with LexiScan bolus REASON FOR TERMINATION: Protocol. PROCEDURE REPORT: Baseline heart rate 80 beats per minute with blood pressure of 135/76. Patient had no significant complaints. Heart rate at 2 minutes post bolus 98 with a blood pressure of 126/72. 3 minutes post bolus heart rate 96 with blood pressure of 130/80. No significant EKG changes were noted. Patient had no significant complaints during the procedure or postprocedure. Patient injected with Aminophyllin 75 mg at 3 minutes or later after Lexiscan bolus. CONCLUSIONS: Normal EKG and hemodynamic response to IV LexiScan. NUCLEAR DATA: At rest the patient was given 9.34 millicuries of technetium 99 sestamibi injected intravenously. As per protocol rest gated SPECT images were obtained. Subsequently the patient was given intravenous LexiScan at a dose of 0.4 mg in 5 mL intravenously, followed by flush with normal saline. Subsequently the stress dose of 31.5 millicuries of technetium 99 sestamibi was injected intravenously. As per protocol stress gated images were obtained. NUCLEAR INTERPRETATION: Both raw and processed data were used for interpretation. Visual, qualitative, computer-generated quantitative data was used. There was good myocardial uptake of technetium compound. Motion artifact and soft tissue attenuations were noted. Increased visceral uptake was noted. No definitive areas of transient perfusion defect noted. No definitive areas of fixed perfusion defect or scars noted. EKG gated imaging showed LV EF at 59 %, rest and stress gated EF similar visually. T. I D. ratio was 1.02. Lung heart ratio noted to be within normal limits 0.28. No significant extracardiac and abnormal radiotracer activities were noted. RV free wall uptake was noted to be WNL IMPRESSION: Also refer to comments under nuclear interpretation. Also test results needs to be interpreted in the context of pretest probability. 1. There is no definitive scintigraphic evidence of LexiScan induced myocardial ischemia. 2. There is no definitive scintigraphic evidence of myocardial infarction/scar. 3. EKG gated imaging shows left ejection fraction of approximately 59 %. 4. Clinical correlation requested as occasionally single vessel disease or balanced ischemia could be missed. In approximately 10% of the cases Lexiscan may not cause adequate vasodilatory stress. RECOMMENDATIONS: Aggressive risk factor modification, medical therapy. Clinical correlation with echocardiogram derived ejection fraction. Inability to exercise by itself can lead to increased cardiovascular event risks. Consider cardiology consultation and or follow-up if clinically indicated. I AM AVAILABLE FOR CARDIOLOGY CONSULTATION AND FOLLOWUP IF REQUESTED BY PMD Clayton Cornelius M.D., DIONI Telephonic Nurse gridcap machine operator, Board certified in cardiovascular diseases, Nuclear cardiology, Echocardiography Cardiac CT and cardiac MRI Ph. [phone] [facility]
[2016-08-18 17:13] LABS: CALCIUM 10.4 mg/dL (8.4-10.2); GLUCOSE 86 mg/dL (75-110)
[2016-08-18 17:14] LABS: ANION GAP 8 (5-19); BLOOD UREA NITROGEN 29 mg/dL (7-20); CARBON DIOXIDE 24 mmol/L (22-30); CHLORIDE 110 mmol/L (98-107); CREATINE KINASE 39 U/L (30-135); CREATININE RESULT 1.02 mg/dL (0.52-1.25); POTASSIUM 5.4 mmol/L (3.6-5.0); SODIUM 141.9 mmol/L (137-145)
[2016-08-18 17:15] LABS: CREATINE KINASE MB 1.14 ng/mL (<4.55)
[2016-08-18 17:16] LABS: TROPONIN I < 0.012 ng/mL
[2016-08-18 18:18] VITALS: BP 150/81
--- NOTE | 2016-08-18 20:24 | DISCHARGE SUMMARY E ---
Discharge Summary NAME: ARELIS LUNA : 1935 AGE: 81Y ADMITTED: 08/16/2016 DISCHARGED: 08/18/2016 DISCHARGE DIAGNOSES: 1. Chest pain/dyspnea. 2. Cholelithiasis. 3. A 3 cm splenic artery aneurysm--unruptured. 4. Weight loss. 5. Subtherapeutic INR on Coumadin. 6. Hyperkalemia, resolved. 7. Proteus mirabilis urinary tract infection. 8. Remote history of breast cancer. 9. Hypertension. 10. Anxiety. DISCHARGE MEDICATIONS: 1. Atenolol 50 mg p.o. daily. 2. Fosamax 70 mg p.o. on Monday. 3. Pravachol 40 mg p.o. nightly. 4. Calcium with vitamin D 1 p.o. daily. 5. Coumadin is increased to 3 mg p.o. nightly. 6. Cefpodoxime 100 mg p.o. b.i.d. x10 days. HOSPITAL COURSE: The patient was admitted primarily for chest pain and shortness of breath. She ruled out for acute [place] by serial cardiac enzymes. Stress test was negative. Echocardiogram pending at the time of discharge. She has been followed by Dr. Cornelius by Cardiology in the hospital. We will have her follow up with Dr. Cornelius for this as well as atrial fibrillation. With regard to her atrial fibrillation, her INR is subtherapeutic and her Coumadin has been increased to 3 mg nightly. I am reluctant to increase it further at this time, as it will likely interact with antibiotics. She will need to have PT/INR checked in the next several days. We will have her follow up with Dr. Lester, her primary care provider for this. With regard to the patient's weight loss, she has lost about 40 pounds in the past 6 months. Some of this is social in nature in that she moved in with her daughter and is eating differently. With that being said, she has not had a colonoscopy in a long time so I will refer her to Dr. Monson in surgery for this as well as his opinion on abnormal CT of the abdomen to include cholelithiasis and splenic artery aneurysm. The patient had hyperkalemia. PAN inhibitor was discontinued. Hyperkalemia resolved. The patient had urinary tract infection and initially was placed on doxycycline but he grew out Proteus mirabilis so is resistant to doxycycline. She is discharged on cefpodoxime based on the culture and sensitivity. The patient has a remote history of breast cancer. Given her recent weight loss, we will have her follow up with Dr. Diaz, her oncologist. DICTATING PHYSICIAN: TERI PULLIAM M.D. [id number] PHY#: [id number] ID: [id number] JOB#: [id number] ACCT: [id number] cc:BILLIE DIAZ M.D., JAMES HUNTER, JENNA BARRAZA TIMOTHY M.D. >
--- NOTE | 2016-08-18 20:49 | PDOC PROGRESS REPORT ---
Subjective Progress Note for:: 08/18/16 Subjective:: Patient seems to be doing better. Pt is denying any chest arm or neck discomfort. Patient denying any PND, orthopnea. Patient denied any sustained palpitations, dizziness, syncope, near syncope. Patient denying any fever chills. Patient denying any other significant discomfort. Patient is maintaining chronic atrial fibrillation with controlled heart rate response. CT results reviewed show splenic artery aneurysm. 2D echo results reviewed showed low normal LVEF. Based on patient symptoms, comorbid diagnosis, risk factor profile, I feel that there is at least a intermediate probability of symptoms from due to underlying CAD . Feel that nuclear stress test is indicated . Risk benefits of nuclear stress test were discussed in detail . small risk of myocardial infarction, , complications from IV, cardiac arrhythmias, precipitation dyspnea etc were discussed in detail . Patient agreeable to pursue this test . Review of systems: Rest review of systems negative. Medications: Medications have been reviewed. Physical Exam Vital Signs: Temp Pulse Resp BP Pulse Ox 97.6 F 74 20 134/71 H 97 08/18/16 17:47 08/18/16 17:47 08/18/16 17:47 08/18/16 17:47 08/18/16 17:47 Intake & Output 08/17/16 08/18/16 08/19/16 06:59 06:59 06:59 Intake Total 240 1331 450 Output Total 650 425 200 Balance -410 906 250 Weight 53.5 kg 54.6 kg Exam: GEN: NAD, patient alert oriented x3. Appearance and grooming WNL HEENT : Eyes: DERRICK, Ears: No significant abnormalities, Nose: No significant abnormalities. normocephalic atraumatic. Flat midface (-), Receding chin (-) ORAL : Mallampati class III, highly arched palate (-) Tonsils: Not enlarged. NECK: no thyromegaly, no masses, trachea is central, JVD is not elevated, carotids are 2+ with bruit (-) RESP: lungs clear to auscultation bilaterally, no rales, wheezes or rhonchi., nonlabored, no use of accessory muscles of respiration CV: NL S1 and S2. 2/6 ejection systolic murmur noted in the aortic area and left sternal border. 1/6 pansystolic murmur noted at the apex. no S3, no S4 noted. No rub noted., gallops, rubs, clicks GI: abd NT to palpation, no masses, bowel sounds present, no guarding or rigidity noted. EXT: no clubbing, (-) cyanosis, edema (-), perpheral pulses diminished (+) MUSC/SKEL: no acute joint swelling noted. Muscle strength is generally intact. NEURO: no tremors. no significant focal neurological deficits are noted., sensation grossly intact, AO x 3 PSYCH: NL mood and affect. judgment and insight noted to be intact.. SKIN: (-) rash, (-)Signs of pruritus, (-) other significant abnormality Results Laboratory Results: 08/18/16 05:38 08/18/16 05:38 08/17/16 08/17/16 08/17/16 04:52 04:52 11:34 WBC 4.8 Cancelled RBC 3.75 Cancelled Hgb 11.3 L Cancelled Hct 33.9 L Cancelled MCV 90 Cancelled MCH 30.1 Cancelled MCHC 33.3 Cancelled RDW 14.5 H Cancelled Plt Count 198 Cancelled Sodium 141.9 Potassium 5.4 H Chloride 110 H Carbon Dioxide 24 Anion Gap 8 BUN 29 H Creatinine 1.02 Est GFR ( Amer) > 60 Est GFR (Non-Af Amer) 52 L Glucose 86 Calcium 10.4 H Stool Occult Blood 08/18/16 08/18/16 08/18/16 05:38 05:38 12:55 WBC 5.4 RBC 3.74 Hgb 11.4 L Hct 34.5 L MCV 92 MCH 30.4 MCHC 32.9 RDW 14.6 H Plt Count 216 Sodium 142.3 Potassium 4.6 Chloride 110 H Carbon Dioxide 22 Anion Gap 10 BUN 24 H Creatinine 0.89 Est GFR ( Amer) > 60 Est GFR (Non-Af Amer) > 60 Glucose 82 Calcium 10.2 Stool Occult Blood NEGATIVE 08/16/16 08/16/16 08/16/16 17:14 18:30 23:00 Creatine Kinase 43 40 CK-MB (CK-2) 0.90 Troponin I < 0.012 08/16/16 08/17/16 08/17/16 23:00 04:52 04:52 Creatine Kinase 39 CK-MB (CK-2) 0.95 1.14 Troponin I < 0.012 < 0.012 Impressions: Chest X-Ray 08/16/16 12:35 IMPRESSION: No acute findings Chest/Abdomen CTA 08/16/16 15:14 IMPRESSION: No CT angio evidence of acute pulmonary emboli or thoracic aortic dissection No acute infiltrates or pleural effusions Calcified stones in the gallbladder Unruptured enhancing 3 cm splenic artery aneurysm Assessment & Plan - Diagnosis (1) Chest pain Qualifiers: Chest pain type: unspecified Qualified Code(s): R07.9 - Chest pain, unspecified Is this a current diagnosis for this admission?: Yes (2) Dyspnea Qualifiers: Dyspnea type: dyspnea on exertion Qualified Code(s): R06.09 - Other forms of dyspnea Is this a current diagnosis for this admission?: Yes (3) Atrial fibrillation Qualifiers: Atrial fibrillation type: chronic Qualified Code(s): I48.2 - Chronic atrial fibrillation Is this a current diagnosis for this admission?: Yes (4) Hypertension Qualifiers: Hypertension type: essential hypertension Qualified Code(s): I10 - Essential (primary) hypertension Is this a current diagnosis for this admission?: Yes (5) Splenic artery aneurysm Is this a current diagnosis for this admission?: Yes - Notes Notes: Chest pain: there has been no recurrence. Nuclear stress test results were discussed. this was negative for any significant ischemia. This was felt to be relatively low risk. Patient was informed that occasionally single-vessel disease could be missed but informed that my suspicion of significant CAD as cause of chest pain was on the low side. Best option would be aggressive risk factor modification and medical therapy at this point. Further assessment and reevaluation may be needed in future if symptoms persists or worsens. Hypertension: Blood-pressure is well controlled. Continue current medications. We discussed importance of weight loss, salt restriction, regular walking program and compliance with medication. We also discussed adverse effect of uncontrolled hypertension. Dyspnea on exertion: this is probably related to deconditioning, possible diastolic dysfunction, pulmonary cause, et cetera . Patient encouraged to walk. Echocardiogram results were reviewed with the patient. Atrial fibrillation: this is chronic. We advised continuing chronic anticoagulation and rate control. Increased risk of stroke discussed. Discuss that based on Brian-Vasc2 score, chronic anticoagulation needs to be continued. Side effects associated with chronic anticoagulation discussed. Patient to report any bleeding problems. Drug drug and diet drug interaction discussed. Patient on echocardiogram is noted to have rather large left atrium. Splenic artery aneurysm: patient would need to be very closely followed. I've offered this. - Time Time with patient: Greater than 35 minutes - Approximately total of 45 minutes spent today. This included discussion of nuclear stress test procedure, risk benefits, discussion of results and further management plans. Also discussed management plans with hospitalist. Multiple medical diagnosis review plan discussed. CODE STATUS was discussed, patient remains full code. Surrogate decision-maker unchanged. Multiple medical problems were addressed. More than 50% of the time spent coordinating care, discussing management plans with involved caregivers. Management plans discussed with involved personnels. Medical decision making was of moderate to high complexity, patient's has multiple severe comorbidities. Medications reviewed and adjusted accordingly: Yes
[2016-08-20 18:51] LABS: ANION GAP 10 (5-19); BLOOD UREA NITROGEN 27 mg/dL (7-20); CALCIUM 10.5 mg/dL (8.4-10.2); CARBON DIOXIDE 25 mmol/L (22-30); CHLORIDE 108 mmol/L (98-107); CREATININE RESULT 0.95 mg/dL (0.52-1.25); GLUCOSE 95 mg/dL (75-110); POTASSIUM 5.6 mmol/L (3.6-5.0); SODIUM 142.8 mmol/L (137-145)
== END 2016-08-18 18:35 | disposition home or self-care (01) ==
LOC: ER 12:20 → EH 15:29 → UNDOADMOB 15:29 → EH 16:38 → 4S 18:13
PROVIDERS: ADMIT Family Medicine; ATTEND Family Medicine
DX: R07.89 Other chest pain (principal); R06.09 Other forms of dyspnea; K80.20 Calculus of gallbladder without cholecystitis without obstruction; I72.8 Aneurysm of other specified arteries; I48.2 Chronic atrial fibrillation; R63.4 Abnormal weight loss; Z79.01 Long term (current) use of anticoagulants; E87.5 Hyperkalemia; E78.5 Hyperlipidemia, unspecified; N39.0 Urinary tract infection, site not specified; B96.4 Proteus (mirabilis) (morganii) as the cause of diseases classified elsewhere; Z16.29 Resistance to other single specified antibiotic; Z85.3 Personal history of malignant neoplasm of breast; I10 Essential (primary) hypertension; F41.9 Anxiety disorder, unspecified; F32.9 Major depressive disorder, single episode, unspecified; M85.80 Other specified disorders of bone density and structure, unspecified site; Z51.81 Encounter for therapeutic drug level monitoring; Z79.899 Other long term (current) drug therapy; Z90.12 Acquired absence of left breast and nipple; Z63.6 Dependent relative needing care at home; Z68.20 Body mass index [BMI] 20.0-20.9, adult
CPT/HCPCS: 93005; 99285; 36415 ×3; 87086; 84439; 82553 ×2; 82607; 82550 ×2; 84443; 85025; 85027 ×2; 85610 ×3; 82272; 87088; 80076; 80048 ×3; 81001; 84484 ×2; 87186; 84481; 82533; 93306; 93017; 71020; 78452; 71275; 93010; G0378 ×3; A9500; J2785; A9270 ×5; J1650 ×2; J0280; Q9969; J3490

== ENCOUNTER 2017-05-24 20:57 | Emergency (ER) | payer MEDICARE ==
--- NOTE | 2017-05-24 22:25 | RADIOLOGY REPORT (SQ) ---
EXAM DESCRIPTION: CHEST SINGLE VIEW COMPLETED DATE/TIME: 05/24/2017 9:55 pm REASON FOR STUDY: difficulty breathing COMPARISON: 08/16/2016 EXAM PARAMETERS: NUMBER OF VIEWS: One view. TECHNIQUE: Single frontal radiographic view of the chest acquired. RADIATION DOSE: NA LIMITATIONS: None. FINDINGS: LUNGS AND PLEURA: No acute opacities, masses or pneumothorax. No pleural effusion. MEDIASTINUM AND HILAR STRUCTURES: Stable. HEART AND VASCULAR STRUCTURES: Stable. BONES: No acute findings. HARDWARE: Left chest wall clips. OTHER: No other significant finding. IMPRESSION: NO ACUTE RADIOGRAPHIC FINDING IN THE CHEST. TECHNICAL DOCUMENTATION: JOB ID: [id number] [place]-72 2010 [employer]- All Rights Reserved
--- NOTE | 2017-05-24 22:59 | ER Document Report ---
ED Medical Screen (RME) - General Chief Complaint: Breathing Difficulty, N/V Stated Complaint: DIFFICULTY BREATHING Time Seen by Provider: 05/24/17 22:51 Mode of Arrival: Wheelchair Information source: Patient Notes: 82 yo hx. AFib female c/o hard time breathing, out of breath since Monday. Worse with exertion, has to rest which she doesn't usually have. No hx. CHF or valvular problems, no hx copd or asthma. Had nausea and vomit when came to ER. No diarrhea. Denies pain, the 5 on her intake was the hard time breathing. Nion smoker. TRAVEL OUTSIDE OF THE [place] IN LAST 30 DAYS: No - Related Data Allergies/Adverse Reactions: No Known Allergies Allergy (Verified 08/16/16 12:25) Past Medical History - Past Medical History Cardiac Medical History: Reports: Hx Atrial Fibrillation, Hx Hypertension Pulmonary Medical History: Reports: Hx Bronchitis - breast Renal/ Medical History: Denies: Hx Peritoneal Dialysis Malignancy Medical History: Reports: Hx Breast Cancer - Remote history followed by Dr. Nina Psychiatric Medical History: Reports: Hx Depression Past Surgical History: Reports: Hx Mastectomy - L side Physical Exam - Vital signs Vitals: Temp Pulse Resp BP Pulse Ox 99.8 F 115 H 20 148/80 H 95 05/24/17 21:07 05/24/17 21:07 05/24/17 21:07 05/24/17 21:07 05/24/17 21:07 Course - Vital Signs Vital signs: Temp Pulse Resp BP Pulse Ox 99.8 F 115 H 20 148/80 H 95 05/24/17 21:07 05/24/17 21:07 05/24/17 21:07 05/24/17 21:07 05/24/17 21:07
[2017-05-24] MEDS ORDERED: ASPIRIN 81 MG TABLET, CHEWABLE PO ONE (23:04)
[2017-05-24 23:50] LABS: INTERNATIONAL RATION (INR) 2.35
[2017-05-24 23:54] LABS: ALANINE AMINOTRANSFERASE 27 U/L (9-52); ALBUMIN 4.4 g/dL (3.5-5.0); ALKALINE PHOSPHATASE 58 U/L (38-126); ANION GAP 14 (5-19); ASPARTATE AMINO TRANSFERASE 28 U/L (14-36); BILIRUBIN,DIRECT 0.2 mg/dL (0.0-0.4); BILIRUBIN,TOTAL 0.8 mg/dL (0.2-1.3); BLOOD UREA NITROGEN 33 mg/dL (7-20); CARBON DIOXIDE 22 mmol/L (22-30); CHLORIDE 105 mmol/L (98-107); CREATINE KINASE 78 U/L (30-135); GLUCOSE 109 mg/dL (75-110); POTASSIUM 4.5 mmol/L (3.6-5.0); SODIUM 140.8 mmol/L (137-145); TOTAL PROTEIN 6.6 g/dL (6.3-8.2)
[2017-05-25 00:03] LABS: HEMOGLOBIN 12.4 g/dL (12.0-15.5); MEAN CORPUSCULAR HEMOGLOBIN 30.6 pg (27.0-33.4); MEAN CORPUSCULAR HGB CONC 32.6 g/dL (32.0-36.0); MEAN CORPUSCULAR VOLUME 94 fl (80-97); PLATELET COUNT 206 10^3/uL (150-450); RED BLOOD COUNT 4.05 10^6/uL (3.72-5.28); RED CELL DISTRIBUTION WIDTH 13.9 % (11.5-14.0)
[2017-05-25 00:06] LABS: ABSOLUTE LYMPHOCYTES# (MANUAL) 0.4 10^3/uL (0.5-4.7); ABSOLUTE MONOCYTES # (MANUAL) 0.7 10^3/uL (0.1-1.4); ABSOLUTE NEUTROPHILS# (MANUAL) 9.9 10^3/uL (1.7-8.2); BAND NEUTROPHILS % (MANUAL) 1 % (3-5); BASOPHILS % (MANUAL) 0 % (0-2); CREATINE KINASE MB 1.08 ng/mL (<4.55); EOSINOPHILS % (MANUAL) 0 % (0-6); LYMPHOCYTES % (MANUAL) 4 % (13-45); MONOCYTES % (MANUAL) 6 % (3-13); SEGMENTED NEUTROPHILS % (MAN) 89 % (42-78); TOTAL CELLS COUNTED 100
[2017-05-25 00:07] LABS: TOXIC GRANULATION 1+
[2017-05-25 00:08] LABS: OVALOCYTES SLIGHT; PLATELET COMMENT ADEQUATE; POIKILOCYTOSIS SLIGHT; TEAR DROP CELLS SLIGHT
[2017-05-25 00:12] LABS: TROPONIN I 0.173 ng/mL
--- NOTE | 2017-05-25 00:32 | ER Document Report ---
ED General - General Mode of Arrival: Wheelchair Information source: Patient TRAVEL OUTSIDE OF THE [place] IN LAST 30 DAYS: No <JAYLON KNIGHT - Last Filed: 05/25/17 01:23> <LIOR PEREZ - Last Filed: 05/25/17 03:50> - General Chief Complaint: Breathing Difficulty, N/V Stated Complaint: DIFFICULTY BREATHING Time Seen by Provider: 05/24/17 22:51 Notes: Patient is an 82 year old female with a history Afib presents to the emergency department complaining dyspnea with exertion onset 2 days ago. Patient states that when she goes on her normal walk she has been having difficulty breathing which is abnormal for her. Patient denies any cough, congestion, or swelling. Patient states she is currently on Coumadin. (JAYLON KNIGHT) - Related Data Allergies/Adverse Reactions: No Known Allergies Allergy (Verified 08/16/16 12:25) Past Medical History - General Information source: Patient - Social History Smoking Status: Former Smoker Family History: Reviewed & Not Pertinent Patient has suicidal ideation: No Patient has homicidal ideation: No - Past Medical History Cardiac Medical History: Reports: Hx Atrial Fibrillation, Hx Hypertension Pulmonary Medical History: Reports: Hx Bronchitis - breast Malignancy Medical History: Reports: Hx Breast Cancer - Remote history followed by Dr. Nina [facility] Medical History: Reports: Hx Depression Past Surgical History: Reports: Hx Mastectomy - L side - Immunizations Hx Pneumococcal Vaccination: 01/04/16 <JAYLON KNIGHT - Last Filed: 05/25/17 01:23> Review of Systems - Review of Systems Constitutional: No symptoms reported EENT: No symptoms reported Cardiovascular: No symptoms reported Respiratory: See HPI, Short of breath Gastrointestinal: No symptoms reported Genitourinary: No symptoms reported Female Genitourinary: No symptoms reported Musculoskeletal: No symptoms reported Skin: No symptoms reported Hematologic/Lymphatic: No symptoms reported Neurological/Psychological: No symptoms reported -: Yes All other systems reviewed and negative <JAYLON KNIGHT - Last Filed: 05/25/17 01:23> Physical Exam <JAYLON KNIGHT - Last Filed: 05/25/17 01:23> <LIOR PEREZ - Last Filed: 05/25/17 03:50> - Vital signs Vitals: Temp Pulse Resp BP Pulse Ox 99.8 F 115 H 20 148/80 H 95 02/21/18 21:07 05/24/17 21:07 05/24/17 21:07 05/24/17 21:07 05/24/17 21:07 - Notes Notes: GENERAL: Alert, interacts well. No acute distress. HEAD: Normocephalic, atraumatic. EYES: Pupils equal, round, and reactive to light. Extraocular movements intact. ENT: Oral mucosa moist, tongue midline. NECK: Full range of motion. Supple. Trachea midline. LUNGS: Clear to auscultation bilaterally, no wheezes, rales, or rhonchi. No respiratory distress. HEART: Regular rate and rhythm. No murmurs, gallops, or rubs. ABDOMEN: Soft, non-tender. Non-distended. Bowel sounds present in all 4 quadrants. EXTREMITIES: Moves all 4 extremities spontaneously. No pitting edema. NEUROLOGICAL: Alert and oriented x3. Normal speech. PSYCH: Normal affect, normal mood. SKIN: Warm, dry, normal turgor. No rashes or lesions noted. (JAYLON KNIGHT) Course - Laboratory Result Diagrams: 05/24/17 23:25 05/24/17 23:25 <JAYLON KNIGHT - Last Filed: 05/25/17 01:23> - Laboratory Result Diagrams: 05/24/17 23:25 05/24/17 23:25 <LIOR PEREZ - Last Filed: 05/25/17 03:50> - Re-evaluation Re-evalutation: 05/25/17 01:20 Discussed elevated BNP, troponin and D-Dimer with accepting physician, Dr. Guevara , at [facility]. (JAYLON KNIGHT) 05/25/17 00:46 Patient found to have slightly elevated troponin with dyspnea on exertion over the last 2-3 days. Patient has history of atrial fibrillation with therapeutic INR of 2.4. Patient's d-dimer is elevated at 0.79 but per adjust trial does not need elevation for further pulmonary embolism testing and she is fully anticoagulated at this time with proper INR. Will defer any CTA as well as mild acute kidney injury with GFR not supporting CTA at this time. ASA provided in ED. (LIOR PEREZ) - Vital Signs Vital signs: Temp Pulse Resp BP Pulse Ox 98.1 F 115 H 24 H 103/65 95 05/25/17 01:34 05/24/17 21:07 05/25/17 02:31 05/25/17 02:01 05/25/17 02:31 - Laboratory Laboratory results interpreted by me: 05/24/17 05/24/17 05/24/17 23:25 23:25 23:25 WBC 11.0 H Seg Neuts % (Manual) 89 H Band Neutrophils % 1 L Lymphocytes % (Manual) 4 L Abs Neuts (Manual) 9.9 H Abs Lymphs (Manual) 0.4 L PT D-Dimer BUN 33 H Creatinine 1.35 H Est GFR ( Amer) 46 L Est GFR (Non-Af Amer) 38 L Calcium 11.0 H NT-Pro-B Natriuret Pep 2990 H 05/24/17 05/24/17 23:25 23:25 WBC Seg Neuts % (Manual) Band Neutrophils % Lymphocytes % (Manual) Abs Neuts (Manual) Abs Lymphs (Manual) PT 27.0 H D-Dimer 0.79 H BUN Creatinine Est GFR ( Amer) Est GFR (Non-Af Amer) Calcium NT-Pro-B Natriuret Pep Discharge <JAYLON KNIGHT - Last Filed: 05/25/17 01:23> <LIOR PEREZ - Last Filed: 05/25/17 03:50> - Discharge Clinical Impression: NSTEMI (non-ST elevated myocardial infarction) Condition: Stable Disposition: [facility] Referrals: BELKIS STANLEY DO [Primary Care Provider] - Follow up as needed Scribe Attestation: 05/25/17 03:50 I personally performed the services described documentation, reviewed and edited the documentation which was dictated to describe my presence, and it accurately records my words and actions. (LIOR PEREZ) Scribe Documentation - Scribe Written by Scribe:: Mariam Wise, 05/25/2017 00:31 acting as scribe for :: Jaya <JAYLON KNIGHT - Last Filed: 05/25/17 01:23>
[2017-05-25] MEDS ORDERED: ASPIRIN 81 MG TABLET, CHEWABLE PO ONE (00:46)
[2017-05-25 02:40] VITALS: BP 103/65
--- NOTE | 2017-05-25 08:08 | EKG REPORT ---
SEVERITY:- ABNORMAL ECG - ATRIAL FIBRILLATION, V-RATE [id number] : Confirmed by: Freddy Dietrich MD 25-May-2017 08:07:23
== END 2017-05-25 02:30 | disposition short-term general hospital (02) ==
LOC: ER 20:57
DX: I21.4 Non-ST elevation (NSTEMI) myocardial infarction (principal); N17.9 Acute kidney failure, unspecified; I10 Essential (primary) hypertension; I48.91 Unspecified atrial fibrillation; Z79.01 Long term (current) use of anticoagulants; Z87.891 Personal history of nicotine dependence; Z85.3 Personal history of malignant neoplasm of breast
CPT/HCPCS: 93005; 99285; 36415; 82553; 82550; 85025; 85610; 80053; 84484; 85379; 83880; 71045; 93010; A9270